=== PATIENT | male | born 1940 | race Caucasian/White ===

== ENCOUNTER 2016-09-12 13:35 | Emergency (ER) | payer MEDICARE ==
[~2016-09-12] VITALS: Ht 175.3 cm; Wt 77.6 kg
[~2016-09-12 13:35] MED LIST: ALENDRONATE SOD70 M1 PO; ALENDRONATE SOD70 MG PO; AMLO5TAB PO; ASPIRIN 81MG TA81 MG PO; ASPIRIN ADULT L81 M2 PO; ATORVASTATIN CA20 MG PO; AVPAK LEVETIRA500 MG PO; BYSTOLIC10 MG PO; CARVEDILOL 1212.5 MG PO; CEFDINIR300 M1 PO; CENTRUM SILVER1 TA3 PO; CITALOPRAM20 M1 PO; CLOPIDOGREL75 M1 PO; CLOPIDOGREL75 MG PO; DOCUSATE SODIU100 MG PO; EYE VITAMIN PO; HYDROCHLOROTHIA25 M1 PO; LISINOPRIL 20MG20 MG PO; NICOTINE PATCH;21 MG TD; PANTOPRAZOLE SO40 MG PO; PANTOPRAZOLE40 M1 PO; POTASSIUM CHLO10 ME2 PO; POTASSIUM CHLO10 ME3 PO; POTASSIUM CHLO20 ME2 PO; SENTRY SENIOR1 TAB PO; VERAPAMIL ER240 MG
[2016-09-12] MEDS ORDERED: TAMSULOSIN HCL0.4 MG PO (14:23)
[2016-09-12] MEDS ORDERED: PANTOPRAZOLE SO40 M1 PO (14:23)
--- OUTSIDE RECORDS SUMMARY | 2016-09-12 15:02 | External Medical Summary Rpt ---
Author Author , Organization [employer] Address Unknown Phone Unavailable Purpose Continuity of Care Document - 12-12-2011 through 2016 Immunization Name Date Route CVX Reacti Commen Provid Is Given on t er Refuse d Influe Histor FQ11 No nza, 2011 ical P-Free Inform ation - Source Unspec ified
--- OUTSIDE RECORDS SUMMARY | 2016-09-12 15:02 | External Medical Summary Rpt ---
Author Author [employer] Organization [employer] Address Unknown Phone Unavailable Purpose Continuity of Care Document - through 2016
--- OUTSIDE RECORDS SUMMARY | 2016-09-12 15:02 | External Medical Summary Rpt ---
Author Author SMILEYMITUL Fregoso, [employer] Organization [employer] Address Unknown Phone Unavailable Payers Section Payer Plan Name Group ID Member ID Coverage Coverage Start End Date Date [employer]-O/ "" [id number] No No P informati informati on in on in source source data data Results CT ABDOMEN W WO CONTRAST Observa Value Referen Units Interpr Notes Date tion ce etation Range EXAMINA No No No No Mar 02 TION: informa informa informa informa 2015 CT of tion in tion in tion in tion in 10:41 the source source source source AM Abdomen data data data data With and Without Contras t Dated\\. br\\02/11. .\\.br\\C LINICAL HISTORY : 1.8-cm hypoech oic lesion within the superio r pole of\\.br\\ the left kidney on recent ultraso und.\\.b r\\\\.br\\ COMPARI SON: Ultraso und of the urinary tract dated 016 and CTA of the\\.br \\abdome n with lower extremi ty runoff dated 014.\\.b r\\\\.br\\ TECHNIQ UE: Routine pre and post contras t imaging of the abdomen was\\.br \\perfor med without the use of enteric contras t. This data was used to\\.br\\ perform coronal reconst ruction s. Patient exposur e is reduced by\\.br\\ "automa prosper exposur e control " wheneve r possibl e on CT examina tions. When\\.b r\\that techniq ue is not availab le, patient exposur e is reduced by adjusti ng\\.br\\ the mA and/or kV accordi ng to patient 's size.\\. br\\\\.br \\FINDIN GS: There are areas of tree-in -bud nodular ity with in both lower\\. br\\lobe s, right greater than left. There is a calcifi ed nodule within the\\.br \\left lower lobe. The heart is normal in size. There are mild to moderat e\\.br\\m ultilev el degener ative changes of the lumbar spine associa prosper with mild\\.b r\\levos coliosi s.\\.br\\ \\.br\\Wi thin the superio r interpo lar region of the left kidney, there is a 0.8 x\\.br\\0 .7-cm low density lesion demonst rating CT attenua tion values of 28, 21,\\.br \\and 31 respect ively on the unenhan miquel, enhance d, delayed phases, most\\.b r\\trish tible with a complic ated cyst. There is a 0.6-cm low density lesion\\ .br\\wit hin the inferio r pole of the left kidney, too small to charact erize.\\ .br\\The re are three parapel shruti cysts within the left kidney. The largest of\\.br\\ these measure s 2.1 x 2.6 x 1.8-cm. Within the mid pole of the right\\. br\\kidn ey, there is a 2.9 x 0.9 x 1.1-cm parapel shruti cyst. There is a 0.5-cm\\ .br\\ind etermin ate lesion within the inferio r pole of the right kidney. \\.br\\\\. br\\The gallbla dder is unremar kable. Gallsto natalia are not exclude d by CT. The\\.br \\liver, pancrea s, and adrenal glands are within normal limits. There are\\.br \\granul omatous calcifi cations within the spleen. There is also\\.b r\\calci ficatio n of the anterio r posteri or splenic capsule .\\.br\\\\ .br\\Wit hin the left paramed ze region of the central mesente ry, there is a 4 x\\.br\\3 .7 x 4.2-cm mass which was not present in 2014. There is no additio nal\\.br \\pathol ogic adenopa thy within the abdomen . There is mild indurat ion of the\\.br \\mesent gretta fat surroun ding the mass.\\. br\\\\.br \\There is a small to moderat e sliding hiatal hernia. 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 br\\\\.br \\IMPRES JEANE:\\. br\\1. 0.8-cm complic ated cyst within the superio r pole of the left kidney, \\.br\\ac countin g for the abnorma lity on the recent ultraso und. This is benign. \\.br\\2. Bilater al parapel shruti renal cysts, left greater than right\\. br\\3. 4 x 4.2-cm mass within the left paramed ze region of the central \\.br\\me jennifer , new from 2013. Differe ntial diagnos is include s lymphom a and\\.br \\carcin oid tumor.\\ .br\\\\.b r\\Rhea tika rodríguez MD US RENAL AND BLADDER Observa Value Referen Units Interpr Notes Date tion ce etation Range EXAMINA No No No No Feb 2 TION: informa informa informa informa 2015 Ultraso tion in tion in tion in tion in 3:21 PM und of source source source source the data data data data Urinary Tract Dated 016.\\.b r\\\\.br\\ CLINICA L HISTORY : Urinary inconti nence.\\ .br\\\\.b r\\TRISH RISON: Right upper quadran t ultraso und dated 016 and a CTA of\\.br\\ the abdomen with runoff dated 014.\\.b r\\\\.br\\ \\.br\\FI NDINGS: The kidneys are normal in size and echogen icity\\. br\\bila terally measuri ng 11.5-cm on the right and 11.9-cm on the left in\\.br\\ length. Within the mid pole of the left kidney, there is a 1.9 x 1.7 x\\.br\\1 .7-cm parapel shruti cyst. Project ing from the mid pole of the left kidney, \\.br\\th ere is a 1 x 0.8-cm exophyt ic lesion which does not appear signifi cantly\\ .br\\cecelia nged from 2013. Within the superio r interpo lar region of the left\\.b r\\kidne y, there is a 1.8-cm hypoech oic area. No right renal mass is\\.br\\ identif ied. There is no hydrone phrosis or shadowi ng calculu s bilater ally.\\. br\\\\.br \\\\.br\\T he urinary bladder is fairly well distend ed with a pre-voi d volume of 126\\.br \\mL. There is no wall thicken ing or definit e intralu ventura mass. The\\.br \\prosta te is difficu lt to visuali ze measuri ng approxi mately 3 x 2.8 x\\.br\\2 .6-cm. Followi ng voiding , there is no post-vo id residua l.\\.br\\ \\.br\\IM PRESSIO N:\\.br\\ 1. No post-vo id residua l.\\.br\\ 2. No hydrone phrosis bilater ally.\\. br\\3. Two left renal cysts with a 1.8-cm indeter minate lesion in the superio r\\.br\\i nterpol ar region of the left kidney, not present on prior. Recomme nd\\.br\\ renal mass protoco l CT for further charact erizati on.\\.br \\\\.br\\J milo rodríguez MD. US RIGHT UPPER QUADRANT Observa Value Referen Units Interpr Notes Date tion ce etation Range EXAMINA No No No No Sep 6 TION: informa informa informa informa 2015 Right tion in tion in tion in tion in 9:01 AM Upper source source source source Quadran data data data data t Ultraso und Dated 016.\\.b r\\\\.br\\ CLINICA L HISTORY : 75-year -old male with macrocy tic anemia. \\.br\\\\. br\\COMP ARISON: No prior studies are availab le for compari son.\\.b r\\\\.br\\ FINDING S: The liver is normal in size, measuri ng 15-cm in length. \\.br\\No rmal homogen eous echotex ture of the liver. No visible liver mass. No\\.br\\ evidenc e of biliary tree dilatat ion. The common duct is within normal\\ .br\\calvillo its, measuri ng 5-mm in diamete r. No gallsto natalia are identif ied. The\\.br \\gallbl adder is not over-di stended . No gallbla dder wall thicken ing or\\.br\\ pericho lecysti c fluid. The pancrea s has a normal appeara nce. The right\\. br\\kidn ey is normal in size, measuri ng 11.0-cm in length. No hydrone phrosis \\.br\\of the right kidney. The left kidney was not imaged. No ascites in the\\.br \\right upper quadran t.\\.br\\ \\.br\\IM PRESSIO N:\\.br\\ :\\.br\\N ormal right upper quadran t ultraso und.\\.b r\\\\.br\\ Mark Marcelino M.D XR CHEST AP LA Observa Value Referen Units Interpr Notes Date tion ce etation Range XR \\.br\\ No No No No Nov 02 CHEST informa informa informa informa 2016 AP LA tion in tion in tion in tion in 12:38 source source source source PM data data data data [facility]\\.br\\ [address]\\.br \\ [facility] [place] [address]\\. br\\\\.br \\ ------- --NAME- ------- - NUMBER SEX AGE ADMIT DISC. XRAY# F/C TYPE\\.b r\\ MASON HARRISON [id number] M 75 11/03/15 11/03/15 [facility] O/P\\.br \\ DATE OF : 9[birth year] M/R# [id number] PH#: RM\\.br\\ LOCATIO N: TRANSCR IBED: 6 13:23\\. br\\ [place] [id number] COMPLET ED:10/12 05/26 13:08 [place] [id number]\\. br\\ {REASON FOR CHEST: ANEMIA\\ .br\\\\.b r\\ PHYSICI AN: POCZATE K B\\.br\\\\ .br\\\\.b r\\===== ======= ======= ======= ======= ======= ======= ======= ======= ======= ======= ====\\.b r\\ RADIOLO GY REPORT\\ .br\\=== ======= ======= ======= ======= ======= ======= ======= ======= ======= ======= ======\\ .br\\ORD ER DATE and TIME: 016 1238\\.b r\\\\.br\\ \\.br\\CL INICAL INFORMA TION: anemia. History of tobacco use and hyperte nsion and\\.br \\\\.br\\C OMPARIS ON: 1.\\.br\\ \\.br\\FI NDINGS: PA and lateral project ions obtaine d. Lungs are hyper expande d. No\\.br\\ acute airspac e disease . Heart size is at the upper limits of normal. No\\.br\\ venous congest ion. Granulo matous disease is noted.\\ .br\\\\.b r\\IMPRE SSION: Borderl ine cardiac enlarge ment without evidenc e of acute\\. br\\card iopulmo nary abnorma lity.\\. br\\\\.br \\Hypere xpansio n suggest s underly ing chronic obstruc tive airways disease .\\.br\\\\ .br\\\\.b r\\Elect ronical ly Signed By:\\.br \\PACO QUINONEZ MD,RADI OLOGIST \\.br\\Da te/Time : 6 13:23\\. br\\ US ECHO TESTICLES Observa Value Referen Units Interpr Notes Date tion ce etation Range US ECHO \\.br\\ No No No No Oct 27 informa informa informa informa 2016 TESTICL tion in tion in tion in tion in 3:43 PM ES source source source source data data data data [facility]\\.br\\ [address]\\.br \\ [place] [place] [address]\\. br\\\\.br \\ ------- --NAME- ------- - NUMBER SEX AGE ADMIT DISC. XRAY# F/C TYPE\\.b r\\ CUEVAS HUNTER [id number] M 75 10/28/15 10/28/15 [facility] O/P\\.br \\ DATE OF : 9[birth year] M/R# [id number] PH#: RM\\.br\\ LOCATIO N: TRANSCR IBED: 6 16:41\\. br\\ [place] [id number] COMPLET ED:10/11 09/25 16:18 SMB [id number]\\. br\\ {REASON FOR TESTING : MASS\\.b r\\\\.br\\ PHYSICI AN: POCZATE K B\\.br\\\\ .br\\\\.b r\\===== ======= ======= ======= ======= ======= ======= ======= ======= ======= ======= ====\\.b r\\ RADIOLO GY REPORT\\ .br\\=== ======= ======= ======= ======= ======= ======= ======= ======= ======= ======= ======\\ .br\\ORD ER DATE and TIME: 016 1543\\.b r\\\\.br\\ \\.br\\Ex aminati on: Scrotal ultraso und 05/28/19 16.\\.br \\\\.br\\H istory: 75-year -old male with right scrotal mass.\\. br\\\\.br \\Compar ashley: None.\\. br\\\\.br \\Findin gs:\\.br \\\\.br\\T he right testicl e measure s 4.7 cm in length by 3.6 x 2.0 cm in cross-s ection. \\.br\\ The left testicl e measure s 4.7 cm in length by 3.7 x 2.0 cm cross-s ection. \\.br\\Mi ld diffuse heterog eneity and hyperva sculari ty of both testicl es. No visible \\.br\\in tratest icular mass. Normal arteria l and venous wavefor ms are demonst rated\\. br\\in both testicl es. No evidenc e of epididy mitis. Tiny cyst in the right\\. br\\epid idymal head. Mild bilater al varicoc eles. Small bilater al hydroce les.\\.b r\\\\.br\\ Impress ion:\\.b r\\\\.br\\ 1. Mild bilater al varicoc eles.\\. br\\\\.br \\2. Small bilater al hydroce les.\\.b r\\\\.br\\ 3. Equivoc al mild bilater al orchiti s.\\.br\\ \\.br\\\\. br\\Elec tronica lly Signed By:\\.br \\Guille. JESSIE MARCELINO MD,RADI OLOGIST \\.br\\Da te/Time : 6 16:41\\. br\\ XR HIP RIGHT AP AND LATERAL Observa Value Referen Units Interpr Notes Date tion ce etation Range EXAMINA No No No No Jul 07 TION: informa informa informa informa 2015 Right tion in tion in tion in tion in 3:41 PM Hip source source source source Dated data data data data 016.\\.b r\\\\.br\\ CLINICA L HISTORY : Right hip pain. No recent trauma. \\.br\\\\. br\\COMP ARISON: No compari son studies .\\.br\\\\ .br\\MELISSA HNIQUE: AP view of the pelvis and a lateral view of the right hip\\.br \\obtain ed.\\.br \\\\.br\\F INDINGS : There is mild osteoar thritic degener ation of the right hip\\.br \\joint. There is minor spurrin g of the articul ar margins and joint space\\. br\\narr owing. No lytic or blastic abnorma lities. The periart icular soft\\.b r\\tissu es have a normal appeara nce. The pelvic ring is grossly intact. \\.br\\\\. br\\IMPR ESSION: \\.br\\1. Mild osteoar thritis of the right hip joint. No acute abnorma lity.\\. br\\Rich ford Quinonez MD. CT ANGIOGRAM ABDOMINAL AORTA AND BILATERAL ILIOFEMORAL RUNOFF W CONTRAST Observa Value Referen Units Interpr Notes Date tion ce etation Range EXAMINA No No No No Jan 09 TION: informa informa informa informa 2013 CTA of tion in tion in tion in tion in 2:50 PM the source source source source Abdomin data data data data al Aorta With Lower Extremi ty Runoff Dated\\. br\\12/13. \\.br\\CL INICAL HISTORY : Right lower extremi ty pain. Periphe ral vascula r\\.br\\d isease with history of stentin g of the right lower extremi ty arterie s.\\.br\\ \\.br\\CO MPARISO N: None.\\. br\\\\.br \\TECHNI QUE: Multipl e axial images from the diaphra gms through the feet\\.b r\\were obtaine d followi ng rapid bolus adminis tration of IV contras t. This\\.b r\\data was used to perform coronal and sagitta l reconst ruction s. 3-D\\.br \\render ing vessel analysi s was perform ed on a [employer] worksta tion.\\. br\\\\.br \\\\.br\\F INDINGS : There is mild to moderat e atheros cleroti c disease of the\\.br \\abdomi nal aorta without aneurys m. 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 The aneurys m does not extend\\ .br\\int o the branche s of the celiac. The SMA and LEONEL are widely patent. \\.br\\Th ere is an 80% stenosi s of the origin of the right renal artery seconda ry\\.br\\ to soft plaque. The left renal artery origina damian above the dany of the\\.br \\diaphr agm and is narrowe d by 30% where it crosses below the dany of the\\.br \\diaphr agm. The distal left renal artery is bulbous at its trifurc ation.\\ .br\\\\.b r\\There is ulcerat ed plaque of the right common iliac artery just distal to\\.br\\ its origin. The ulcerat ion measure d 4.5-mm transve rse and 6.5-mm AP.\\.br \\This plaque results in a 30% stenosi s of the right common iliac artery. \\.br\\Th ere is mild to moderat e soft plaque fairly diffuse ly involvi ng the right\\. br\\supe rficial femoral artery. The patient is status post stentin g of the\\.br \\mid right superfi cial femoral artery. 3-cm above this stent, there is a\\.br\\6 0% stenosi s of the right SFA, extendi ng for a length of 1.5-cm. There is\\.br\\ a also a 60% in-sten t resteno sis involvi ng the distal one-thi rd of this\\.b r\\stent . There is a second stent beginni ng within the mid SFA more\\.b r\\dista lly, extendi ng into the poplite al artery and tibiope roneal trunk.\\ .br\\Thi s very long stent is occlude d within the distal SFA, 2.5-cm distal to\\.br\\ the origin of the stent. There is no evidenc e of reconst itution below the\\.br \\stent. However , the lower extremi ty arterie s are not opacifi ed below the\\.br \\knees bilater ally, likely seconda ry to poor bolus timing. \\.br\\\\. br\\Ther e is scatter ed atheros cleroti c disease of the left common iliac,\\ .br\\ext ernal iliac, and common femoral arterie s. There is mild diffuse \\.br\\at heroscl erotic disease of the left SFA without a signifi cant stenosi s.\\.br\\ The contras t bolus is lost at the knee.\\. br\\\\.br \\There is complet e atrophy of the right gastroc nemius and soleus muscles .\\.br\\T he right Peter s tendon remains intact. There is mild atrophy of the\\.br \\right biceps femoris muscle. \\.br\\\\. br\\The prostat e is mildly enlarge d measuri ng 4.8 x 3.6-cm. There is mild\\.b r\\diver ticulos is of the sigmoid colon without evidenc e of diverti culitis .\\.br\\T here are bilater al parapel shruti renal cysts. Granulo matous calcifi cations \\.br\\in volve the spleen. There is a small sliding hiatal hernia. The CT\\.br\\ source images are otherwi se unremar kable.\\ .br\\\\.b r\\IMPRE SSION:\\ .br\\1. Subopti mal examina tion as the contras t bolus is lost at the knees.\\ .br\\Run off to the ankles cannot be assesse d.\\.br\\ 2. Short stent within the mid right SFA with a 60% in-sten t resteno sis\\.br \\involv ing the distal one-thi rd of the stent. There is also a 60% stenosi s\\.br\\o f the right SFA 3-cm above this stent and extendi ng for a length of\\.br\\ 1.5-cm. \\.br\\3. Long stent mejia ing the distal right SFA, poplite al artery, and\\.br \\tibiop eroneal trunk with probabl e occlusi on of this stent 2.5-cm distal to\\.br\\ its origin. \\.br\\4. Ulcerat ed plaque of the right common iliac artery associa prosper with a 30%\\.br \\stenos is.\\.br \\5. 80% stenosi s of the origin of the right renal artery seconda ry to soft\\.b r\\plaqu e.\\.br\\ 6. 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 \\.br\\7. Near complet e atrophy of the right gastroc nemius and soleus muscles .\\.br\\\\ .br\\Simi rodríguez MD. HIP RIGHT Observa Value Referen Units Interpr Notes Date tion ce etation Range HIP No No No No May 4 RIGHT informa informa informa informa 2012 tion in tion in tion in tion in 5:44 PM source source source source data data data data [facility]\\.br\\ [address]\\.br \\ [place] [address]\\. br\\\\.br \\ RADIOLO GY REPORT\\ .br\\ Name: MASON HARRISON \\.br\\ Patient #: [id number] Stay Type: E/R\\.br \\ Age: 71 Room: [facility]\\. br\\ : 942 Sex: M\\.br\\ Orderin g Phys: NOE RO MR#: [id number]\\. br\\ Family Phys: MADHAV ANALI Pt Phone: [phone] /[phone]\\. br\\ Admitti ng Phys: NOE RO\\.br\\ Unsig ricky Transcr iptions represe nt a prelimi nary report and do\\.br\\ not reflect a medical or legal documen t.\\.b r\\\\.br\\ HIP RIGHT [id number] COMPLET E:05/14 18:32 ACF [id number]\\. br\\ Diagnos is: FALL\\.b r\\\\.br\\ HISTORY : 71 year-ol d male status post fall with right hip pain.\\. br\\\\.br \\ FINDING S: AP radiogr aph of the pelvis and frogleg radiogr aph of the right hip dated 3.\\.br\\ No prior studies are availab le for compari son.\\.b r\\\\.br\\ The pelvic ring is intact. The sacroil iac joints and pubic symphys is have a normal appeara nce.\\.b r\\ Joint spaces of both hips are preserv ed. Mild margina l osteoph yte formati on of both femoral \\.br\\ heads. No fractur es or disloca tions are identif ied.\\.b r\\\\.br\\ IMPRESS ION:\\.b r\\ No fractur es or disloca tions are identif ied in the pelvis or right hip.\\.b r\\ Mild degener ative changes of both hips.\\. br\\\\.br \\ Electro nically reviewe d and signed by:\\.br \\ Madhuri MARCELINO MD\\.br\\ RADIOLO GIST/ 15:56\\. br\\\\.br \\ Dictati on Date/Ti me: 05/15/12 8:47 Dictate d By: Madhuri MARCELINO MD RADIOLO GIST\\.b r\\ Transcr . Date/Ti me: 05/15/12 19:49 Transcr . Init.: rjh\\.br \\\\.br\\ Copy for: KUSUM Macias M.D.\\.b r\\ Copy for: KADI WALL\\.br\\ Copy for: 073 [facility]FORMA TION MANAGEM ENT\\.br \\ DISCHAR GED\\.br \\\\.br\\ CT MAXILLOFACIAL WITHOUT Observa Value Referen Units Interpr Notes Date tion ce etation Range CT No No No No May 4 MAXILLO informa informa informa informa 2013 FACIAL tion in tion in tion in tion in 5:44 PM WITHOUT source source source source data data data data [facility]\\.br\\ [address]\\.br \\ [place] [address]\\. br\\\\.br \\ RADIOLO GY REPORT\\ .br\\ Name: MASON HARRISON \\.br\\ Patient #: [id number] Stay Type: E/R\\.br \\ Age: 71 Room: [facility]\\. br\\ : 942 Sex: M\\.br\\ Orderin g Phys: NOE RO MR#: [id number]\\. br\\ Family Phys: MADHAV BRIONES Pt Phone: [phone] /[phone]\\. br\\ Admitti ng Phys: NOE RO\\.br\\ Unsig ricky Transcr iptions represe nt a prelimi nary report and do\\.br\\ not reflect a medical or legal documen t.\\.b r\\\\.br\\ CT MAXILLO FACIAL WITHOUT [id number] COMPLET E: 3 18:32 ACF [id number]\\. br\\ Diagnos is: FALL\\.b r\\\\.br\\ CLINICA L HISTORY : facial pain with lacerat ion over the right aspect of the mandibl e followi ng\\.br\\ injury. \\.br\\ COMPARI SON: none.\\. br\\\\.br \\ FINDING S: Multipl e axial images through the facial bones were obtaine d without the use of\\.br\\ intrave nous contras t. This data was used to perform coronal reconst ruction s. The facial bones are\\.br \\ intact without fractur e. There is minimal mucoper iosteal thicken ing of the bilater al maxilla ry\\.br\\ sinuses . The remaind er of the visuali zed paranas al sinuses is clear and the ostiome atal units are\\.br \\ patent. There is mild leftwar d deviati on of the inferio r aspect of the nasal septum at its mid\\.br \\ portion . There is subcuta neous gas superfi cial to the right mandibu lar body associa prosper with a small\\. br\\ fluid collect ion compati ble with a lacerat ion. The fluid collect ion measure s approxi mately 0.7 x\\.br\\ 2.7 x 1.8 cm. The visuali zed airway is patent. The patient is status post bilater al catarac t surgery .\\.br\\ The intraor bital content s are otherwi se unremar kable.\\ .br\\\\.b r\\ IMPRESS ION:\\.b r\\ 1.8 x 2.7-cm collect ion of fluid and air superfi cial to the right mandibu lar body without a\\.br\\ facial fractur e.\\.br\\ Minor chronic bilater al maxilla ry sinusit is.\\.br \\ Electro nically reviewe d and signed by:\\.br \\ Madhuri MARCELINO MD\\.br\\ RADIOLO GIST/ 09:07\\. br\\\\.br \\ Dictati on Date/Ti me: 05/14/12 1844 Dictate d By: BJ RODRÍGUEZ MD RADIOLO [facility]\\.b r\\ Transcr . Date/Ti me: 05/14/12 / 22:45 Transcr . Init.: JFM\\.br \\\\.br\\ Copy for: KUSUM Macias M.D.\\.b r\\ Copy for: KADI WALL\\.br\\ Copy for: 073 [facility] INFORMA TION MANAGEM ENT\\.br \\ DISCHAR GED\\.br \\\\.br\\
--- OUTSIDE RECORDS SUMMARY | 2016-09-12 15:02 | External Medical Summary Rpt ---
Author Author SMILEYMITUL Fregoso, [employer] Organization [employer] Address Unknown Phone Unavailable Payers Section Payer Plan Name Group ID Member ID Coverage Coverage Start End Date Date HUMANA-O/ "" [id number] No No P informati informati on in [...] source source PM data data data data [facility]\\.br\\ [address]\\.br \\ [facility], [facility] [place] [address]\\. br\\\\.br \\ ------- --NAME- ------- - NUMBER SEX AGE ADMIT DISC. XRAY# F/C TYPE\\.b r\\ MASON HARRISON [id number] M 75 11/03/15 11/03/15 MHB O/P\\.br \\ DATE OF : [birth year] M/R# [id number] PH#: RM\\.br\\ LOCATIO N: TRANSCR IBED: 6 13:23\\. br\\ [place] [id number] COMPLET ED:10/12 05/26 13:08 [place] [address]\\. br\\ {REASON FOR CHEST: ANEMIA\\ .br\\\\.b r\\ [...] source source source data data data data [facility] L\\.br\\ [address]\\.br \\ [place], [facility] [place] [address]\\. br\\\\.br \\ ------- --NAME- ------- - NUMBER SEX AGE ADMIT DISC. XRAY# F/C TYPE\\.b r\\ CUEVAS HUNTER [id number] M 75 10/28/15 10/28/15 MHB O/P\\.br \\ DATE OF : [birth year] M/R# [id number] PH#: RM\\.br\\ LOCATIO N: TRANSCR IBED: 6 16:41\\. br\\ [place] [id number] COMPLET ED:10/11 09/25 16:18 SMB 474[address]\\. br\\ {REASON FOR TESTING : MASS\\.b r\\\\.br\\ [...] analysi s was perform ed on a Proxible worksta tion.\\. br\\\\.br \\\\.br\\F INDINGS : There [...] source source source data data data data [facility] L\\.br\\ [address]\\.br \\ [facility] [place] [address]\\. br\\\\.br \\ RADIOLO GY REPORT\\ .br\\ Name: MASON HARRISON \\.br\\ Patient #: [id number] Stay Type: E/R\\.br \\ Age: 71 Room: [facility]\\. br\\ : 942 Sex: M\\.br\\ Orderin g Phys: NOE RO MR#: [id number]\\. br\\ Family Phys: MADHAV ANALI Pt Phone: [phone] /[phone]\\. br\\ Admitti ng Phys: NOE RO\\.br\\ Unsig ricky Transcr iptions represe nt a prelimi nary report and do\\.br\\ not reflect a medical or legal documen t.\\.b r\\\\.br\\ HIP RIGHT [id number] COMPLET E:05/14 18:32 ACF 66508\\. br\\ Diagnos is: FALL\\.b r\\\\.br\\ HISTORY : [...] source source source data data data data [facility] L\\.br\\ [address]\\.br \\ [place] [address]\\. br\\\\.br \\ RADIOLO GY REPORT\\ .br\\ Name: MASON HARRISON \\.br\\ Patient #: [id number] Stay Type: E/R\\.br \\ Age: 71 Room: [facility]\\. br\\ : 942 Sex: M\\.br\\ Orderin g Phys: NOE RO MR#: [id number]\\. br\\ Family Phys: MADHAV BRIONES Pt Phone: [phone] /[phone]\\. br\\ Admitti ng Phys: NOE RO\\.br\\ Unsig ricky Transcr iptions represe nt a prelimi nary report and do\\.br\\ not reflect a medical or legal documen t.\\.b r\\\\.br\\ CT MAXILLO FACIAL WITHOUT [id number] COMPLET E: 3 18:32 ACF 64363\\. br\\ Diagnos is: FALL\\.b r\\\\.br\\ CLINICA L [...] Dictate d By: BJ RODRÍGUEZ MD RADIOLO [facility]\\.b r\\ Transcr . Date/Ti me: 05/14/12 / 22:45 Transcr . Init.: JFM\\.br \\\\.br\\ Copy for: KUSUM Macias M.D.\\.b r\\ Copy for: KADI WALL\\.br\\ Copy for: 073 [facility]ALTH INFORMA TION MANAGEM ENT\\.br \\ DISCHAR GED\\.br \\\\.br\\
--- OUTSIDE RECORDS SUMMARY | 2016-09-12 15:02 | External Medical Summary Rpt ---
Author Author , Organization [employer] Address Unknown Phone Unavailable Care Team Providers Care Laboratory Analyst Name Role Phone Sera Hernandez MD, Unavailable Unavailable Sera Hernandez MD Purpose Continuity of Care Document - 05-14-2012 through 2016 Problems Code Diagnosis DOS Provider Status 272.4 272.4 01-10-2013 [employer] HYPERLIPIDE [facility] NEC/NOS Hospital 305.1 305.1 01-10-2013 [employer] TOBACCO USE [facility] 401.9 401.9 01-10-2013 [employer] HYPERTENSIO [facility] N [facility] Hospital 440.20 440.20 01-10-2013 [facility] OSIS BOIS FORTE [facility] ARTERIES EXTREMITIES UNSPEC 454.9 454.9 01-10-2013 [employer] ASYMPTOMATI [facility] VARICOSE [facility] VEINS 496 496 CHR 01-10-2013 [facility] AIRWAY [facility] OBSTRUCT [facility] NEC 608.1 608.1 01-10-2013 [employer] SPERMATOCEL [facility] E [facility] 729.5 729.5 PAIN 01-10-2013 [employer] IN LIMB [facility] V12.54 V12.54 01-10-2013 [facility] PERSONAL [facility] TIA,& Hospital CEREBRAL INFARCTION W/OUT RES DEFICITS V45.89 V45.89 01-10-2013 [facility] POSTSURGICA [facility] NEC Allergies, Adverse Reactions, Alerts Type Drug Allergy Adverse Reaction to Substance Substance Reaction Severity No Known Drug Unknown Unknown Allergies Vital Signs 01-10-2013 15:08 Name Value Interpretat Reference Comment ion Range Body 98.3 [degF] Temperature BP 90 mm[Hg] Diastolic BP Systolic 153 mm[Hg] Heart 88 /min Rate/Pulse O2% 97 % Respiratory 20 /min Rate 01-10-2013 12:37 Name Value Interpretat Reference Comment ion Range BP 100 mm[Hg] Diastolic BP Systolic 164 mm[Hg] Heart 80 /min Rate/Pulse O2% 97 % Respiratory 20 /min Rate Encounters Encounter Start End Date Code Location Performer Type Date Emergency RAFAT Hernandez MD (ER) 3 12:49 3 15:08 [facility]
--- OUTSIDE RECORDS SUMMARY | 2016-09-12 15:02 | External Medical Summary Rpt ---
Author Author , Organization [employer] Address Unknown Phone Unavailable Care Team Providers Care Floors Buffer Name Role Phone Sera Hernandez MD, Unavailable Unavailable Sera Hernandez MD Purpose Continuity of Care Document - 05-14-2012 through 2016 Problems Code Diagnosis DOS Provider Status 272.4 272.4 01-10-2013 [employer] HYPERLIPIDE [facility] NEC/NOS Hospital 305.1 305.1 01-10-2013 [employer] TOBACCO USE [facility] 401.9 401.9 01-10-2013 [employer] HYPERTENSIO [facility] N [facility] Hospital 440.20 440.20 01-10-2013 [facility] OSIS AKHIOK [facility] ARTERIES EXTREMITIES UNSPEC 454.9 454.9 01-10-2013 [employer] ASYMPTOMATI [facility] VARICOSE [facility] VEINS 496 496 CHR 01-10-2013 [facility] AIRWAY [facility] OBSTRUCT [facility] NEC 608.1 608.1 01-10-2013 [employer] SPERMATOCEL [facility] E [facility] 729.5 729.5 PAIN 01-10-2013 [employer] IN LIMB [facility] V12.54 V12.54 01-10-2013 [facility] PERSONAL [facility] TIA,& Hospital CEREBRAL INFARCTION W/OUT RES DEFICITS V45.89 V45.89 01-10-2013 [facility] POSTSURGICA [facility] NEC Allergies, Adverse Reactions, Alerts Type Drug [...] Hernandez MD (ER) 3 12:49 3 15:08 [facility]
[2016-09-12 15:11] LABS: LYMPH # 1.2 K/mm3 (0.7-4.5); LYMPH % 37.5 % (10-50)
[2016-09-12 15:13] LABS: HEMOGLOBIN 7.8 g/dL (14.1-18.0)
--- NOTE | 2016-09-12 16:23 | Emergency Room Report ---
History of Present Illness Time Seen by MD Moreno Presenting Problem in Triage Pt arrived:Wheelchair Presenting Problem:PER PT DAUGHTER PT HAS BEEN INCREASING WEAKENING X1 WEEK. 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 N Clinical Suspician of Infection? N Mental Status: 1 - Regular (Normal Baseline) Sepsis Risk:Low Sepsis Risk Have you (or family members/close friends) recently traveled outside the [facility]? N If Yes, where/when: Have you had exposure to infectious disease within the past month? N TB? Other? Specify: Patient with generalized weakness, chronic anemia and followed by a specialist in [place], stating usually hemoglobin around seven and receives injections every two weeks in [place]. No abdominal pain, syncope, unilateral weakness, chest pain or palpitations. Feels a little light headed when standing, but no SOB. No vomiting. No blood from above or below. ALLERGIES Coded Allergies: No Known Drug Allergies (01/06/12) Home Medications Active Scripts POTASSIUM CHL (Potassium Chloride) 20 MEQ PO BID #60 TABLET Ref 1 Prov: 12/07/13 Reported Medications Citalopram Hydrobromide (Citalopram HBr) 20 MG PO QOD NEBIVOLOL HCL (Bystolic) 10 MG PO BID MULTIVIT-MIN/FA/LYCOPENE/LUT ([employer] Senior Tablet) 1 TAB PO DAILY Amlodipine Besylate (Amlodipine) 5 MG PO DAILY ASPIRIN (Aspirin) 81 MG PO DAILY CLOPIDOGREL BISULFATE (Clopidogrel 75MG) 75 MG PO DAILY Docusate Sodium 100 MG PO DAILY HYDROCHLOROTHIAZIDE (Hydrochlorothiazide) 25 MG PO DAILY ATORVASTATIN CALCIUM (ATORVASTATIN 20MG) 20 MG PO QAM Pantoprazole Sodium (Pantoprazole 40MG) 40 MG PO BID Alendronate Sodium 70 MG PO WEEKLY TAMSULOSIN HCL (Tamsulosin HCl) 0.4 MG PO DAILY #30 Pantoprazole Sodium 40 MG PO DAILY #90 History Medical History General CAD? No Angina: No IA: No Hypertension? Yes Hyperlipidemia? Yes CHF? No DVT? No PE? No COPD? Yes Asthma? No Anemia? Yes GERD? No Gastric ulcers? No GI Bleed? No Hernia? No Thyroid Problems? Yes Hypothyroidism? Yes CVA? Yes Seizures? Yes Diabetes? No Renal Insuffiency? No End Stage Renal Disease? No UTI? No Stones? No GB Disease: No Nephritic Syndrome? No Asplenia? No Hepatitis? No Sickle Cell Disease? No Arthritis? No Migraines? No Cataracts? No Glaucoma? No MRSA? No HIV? No TB? No Anxiety? No Depression? No Cancer? No More? Yes Additional hx: MYELODYSPLASTIC SYNDROME Immunization Hx DT/Tetanus Unknown Flu 2012-FSN Pneumonia Received In Past Surgical Hx Previous Surgery?Y HEART CATH WITH STENT STENT RIGHT LEG X2 HEMORRHOIDECTOMY Family History Family Hx Diabetes Yes CAD Yes Hypertension Yes Hyperlipidemia Yes Cancer No TB No Social History Smoking Hx Smoker: Never Smoker Tobacco: Yes Type Snuff Alcohol Alcohol: No Review of Systems All Other Systems Reviewed and Negative (hem/onc see hpi) Physical Exam Vital Signs Vital Signs Date Time Temp Pulse Resp B/P Pulse O2 O2 Flow FiO2 Ox Delivery Rate 09/12 1558 65 18 154/76 100 09/12 1410 98.8 69 18 153/78 95 General Appearance normal appearance, WD/WN, no apparent distress Eye Exam - bilateral eye normal exam, bilateral eye PERRL, bilateral eye EOMI, bilateral eye pale conjunctivae Ear, Nose, Throat hearing grossly normal (serous OM), normal pharynx, abnormal TM (R), abnormal TM (L) Neck normal inspection, non-tender, supple, full range of motion Respiratory Status Yes: trachea midline, chest symmetrical, non tender chest. No: respiratory distress, tender on palpation, use of accessory muscles, pain on inspiration, pain on expiration. Lung Sounds bilateral: normal breath sounds, lungs clear. Cardiovascular normal exam, regular rate/rhythm, no peripheral edema, no gallop, no JVD, no murmur, no rub, normal peripheral pulses Gastrointestinal normal bowel sounds, normal exam, non tender, soft, no organomegaly, no pulsatile mass, no guarding, no rebound Extremities non-tender, normal range of motion, normal inspection Strength 5 Upper Ext (L), 5 Upper Ext (R), 5 Lower Ext (L), 5 Lower Ext (R) Neurologic alert, normal exam, no motor/sensory deficits, oriented x 3 (able to stand; nonfocal), speech clear no tremor; CN's grossly intact Glascow Coma Scale Glascow Coma Scale Response Value EYE response: 4 Spontaneously 4 MOTOR response: 6 OBEYS 6 VERBAL response: 5 Oriented & Converses 5 Total 15 Mental status normal mood/affect Skin intact, pallor Medical Decision Making LABS/Meds/Orders Pt receiving controlled substance in ED? No Results/Orders Laboratory Tests 09/12/16 1445: Sodium 144, Potassium 3.7, Chloride 108 H, Carbon Dioxide 27, BUN 22 H, Creatinine 1.2, Estimated Creat Clear 58, Estimated GFR (MDRD) 59, Glucose 94, Calcium 9.1, Total Bilirubin 0.6, AST 15, ALT 17, Alkaline Phosphatase 91, Total Protein 8.3 H, Albumin 3.4, Globulin 4.9 H, Albumin/Globulin Ratio 0.7 L, WBC 3.3 L, RBC 2.10 L, Hgb 7.8 *L, Hct 22.7 *L, MCV 108.3 H, RDW 19.8 H, Plt Count 73 L, MPV 11.0 H, Gran % 52.5, Gran # 1.7, Lymphocytes % 37.5, Monocytes % 7.4, Eosinophils % 2.1, Basophils % 0.4, Lymphocytes # 1.2, Monocytes # 0.2, Eosinophils # 0.1, Basophils # 0.0, PUBS MCHC 34.2, MCH 37.0 H 09/12/16 0600: PT 11.4, INR 1.07 Current Medication Orders Sig/Rashel Start time Last Medication Dose Route Stop Time Status Admin Sodium Chloride 10 ML PRN PRN 09/12 1430 AC IV 09/13 1430 Orders Procedure Date/time Status PROTHROMBIN TIME 09/12 1507 Complete IV SALINE LOCK 09/12 143 Active CBC WITH AUTO DIFF 09/12 143 Complete CHEM 12 PROFILE 09/12 1430 Complete Progress ED Progress Notes Date 09/12/16 Time 1619 Comment No complaints at discharge. Denies any chest pain, SOB, headache, syncope, or any unilateral weakness or neurological sx. Departure Departure Time of Disposition 1620 Disposition DC Home or Self Care(routine) Clinical Impression Primary Impression: Anemia Qualifiers: Anemia type: unspecified type Qualified Code: D64.9 - Anemia, unspecified Secondary Impressions: Acute serous otitis media Qualifiers: Laterality: bilateral Recurrence: not specified as recurrent Qualified Code: H65.03 - Acute serous otitis media, bilateral Condition STABLE Referrals KRISTIN NUNN (Family) Patient Instructions Loratadine Additional Instructions Try a half dose of Claritin for congestion behind ears (serous otitis) and follow up closely with your family doctor as well as medical front desk coordinator this week. Increase fluids by mouth. Discharge Counseling Counseled pt/family regarding diagnosis, test results, medications/RX, home care, follow up needs ED Critical Care Critical Care No at 3247
[2016-09-12 16:38] VITALS: BP 154/76
== END 2016-09-12 16:40 | disposition home or self-care (01) ==
LOC: ER 13:35
PROVIDERS: Emergency Medicine
DX: D64.9 Anemia, unspecified (principal); H65.03 Acute serous otitis media, bilateral; I10 Essential (primary) hypertension; D46.9 Myelodysplastic syndrome, unspecified